=== PATIENT | male | born 1955 | race Caucasian/White ===

== ENCOUNTER 2018-07-22 11:45 | Emergency (ER) | payer SELFPAY ==
[~2018-07-22] VITALS: Ht 170.2 cm; Wt 78.7 kg
[2018-07-22] MEDS ORDERED: SODIUM CHLORIDE FLUSH 10ML SYR IVF ONE (12:30)
[2018-07-22 12:44] LABS: BASOPHILS # (AUTO) 0.01 x10^3/uL (0-0.1); BASOPHILS % (AUTO) 0 % (0-1); EOSINOPHILS # (AUTO) 0.03 x10^3/uL (0-0.4); EOSINOPHILS % (AUTO) 1 % (1-7); LYMPHOCYTES # (AUTO) 1.65 x10^3/uL (1-3.4); LYMPHOCYTES % (AUTO) 25 % (22-44); MD NO; MEAN CORPUSCULAR HEMOGLOBIN 31.1 pg (27.5-34.5); MEAN CORPUSCULAR HGB CONC 34.2 g/dL (33.2-36.2); MEAN CORPUSCULAR VOLUME 90.8 fL (81-97); MONOCYTES # (AUTO) 0.42 x10^3/uL (0.2-0.8); MONOCYTES % (AUTO) 6 % (2-9); NEUTROPHILS # (AUTO) 4.44 x10^3/uL (1.8-6.8); NEUTROPHILS % (AUTO) 68 % (42-75); PLATELET COUNT 215 x10^3/uL (130-400); RED BLOOD COUNT 5.71 x10^6/uL (4.38-5.82); RED CELL DISTRIBUTION WIDTH 13.2 % (9.4-14.8)
--- NOTE | 2018-07-22 12:46 | NUR ---
PT TO ROOM FROM LOBBY
[2018-07-22 12:53] LABS: ALANINE AMINOTRANSFERASE 19 U/L (12-78); ALBUMIN 4.2 g/dL (3.4-5.0); ANION GAP 6 mmol/L (5-15); CALCIUM 9.3 mg/dL (8.5-10.1); CHLORIDE 105 mmol/L (98-107)
[2018-07-22 12:56] LABS: ALKALINE PHOSPHATASE 104 U/L (45-117); BILIRUBIN,TOTAL 0.7 mg/dL (0.2-1.0); CREATININE 1.25 mg/dL (0.7-1.3); TOTAL PROTEIN 8.1 g/dL (6.4-8.2)
[2018-07-22 12:59] VITALS: BP_DIAS 90
--- NOTE | 2018-07-22 13:11 | NUR ---
THIS IS A 62 YEAR OLD MALE WHO C/O OF LIGHTEDNESS AND DIZZINESS. STARTED LAST WEEK, WORSE TODAY. DENIES ANY FALLS.
[2018-07-22] MEDS ORDERED: MECLIZINE CHEWABLE 25 MG TAB ONE (13:23)
[2018-07-22] MEDS ORDERED: MECLIZINE CHEWABLE 25 MG TAB PO ONE (13:30)
[2018-07-22 13:59] LABS: MICROSCOPIC INDICATED
[2018-07-22 14:28] LABS: CULTURE INDICATED? YES
--- NOTE | 2018-07-22 14:39 | NUR ---
CARE FOR DC PROVIDED. PT WITH DECREASED C/O DIZZINESS. NO IV TO DC. REVIEWED DC INSTRUCTIONS WITH PT. UNDERSTANDING VERBALIZED. PT LEFT AMB, GAIT STEADY.
[2018-07-22 14:40] VITALS: BP_SYST 155
== END 2018-07-22 14:42 | disposition home or self-care (01) ==
LOC: ED 14:30
DX: R42 Dizziness and giddiness (principal); R11.10 Vomiting, unspecified
CPT/HCPCS: 36415; 80053; 81001; 85025; 87086; 93005; 99284

== ENCOUNTER 2019-06-27 08:43 | Inpatient (IN) | payer SELFPAY ==
[~2019-06-27] VITALS: Ht 170.2 cm; Wt 85.2 kg
[2019-06-27] MEDS ORDERED: ASPIRIN 325 MG TABLET PO STA (08:54)
--- NOTE | 2019-06-27 09:05 | NUR ---
855 code cardiac paged [phone] lab animal technician called and are aware of pt 857 jony heard paged for dr singleton [phone] dr singleton spoke with dr jony heard
--- NOTE | 2019-06-27 09:09 | NUR ---
PT PRESENTS TO ED WITH C/O STERNAL CHEST PRESSURE 4/10 ONSET THIS AM AT 0500 WITH ASSOCIATED SOB. PT STATES PAIN TRAVELS TO LEFT NECK. PT STATES HE HAS HAD THIS PAIN INTERMITTENTLY FOR LAST TWO MONTHS, HOWEVER PAIN IS WORSE THIS AM THAN IT HAS EVER BEEN. PT STATES PAIN IS NOW CONSTANT. PT DENIES PMH, STATES HE TOOK 2 BABY ASPIRIN THIS AM AT APPROX 0630 WITH SIP OF WATER. PIV PLACED X 2, EKG TAKEN IN TRIAGE, REPEAT EKG TAKEN IN ROOM. ALL MONITORS IN PLACE .TRANSLUCSENT PADS IN PLACE. PT SEEN AND EVALUATED BY RETAIL ADVISOR WHO RECOMMENDS ANGIOGRAM. PT TO GO TO TESTING SHAKING SHIPPING WHEN TESTING SHAKING SHIPPING IS READY.
[2019-06-27 09:10] LABS: BASOPHILS # (AUTO) 0.04 x10^3/uL (0-0.1); BASOPHILS % (AUTO) 0 % (0-1); EOSINOPHILS # (AUTO) 0.01 x10^3/uL (0-0.4); EOSINOPHILS % (AUTO) 0 % (1-7); LYMPHOCYTES # (AUTO) 1.18 x10^3/uL (1-3.4); LYMPHOCYTES % (AUTO) 9 % (22-44); MD NO; MEAN CORPUSCULAR HEMOGLOBIN 30.8 pg (27.5-34.5); MEAN CORPUSCULAR HGB CONC 33.4 g/dL (33.2-36.2); MEAN PLATELET VOLUME 7.8 fL (7.4-10.4); MONOCYTES # (AUTO) 0.31 x10^3/uL (0.2-0.8); MONOCYTES % (AUTO) 2 % (2-9); NEUTROPHILS # (AUTO) 11.49 x10^3/uL (1.8-6.8); NEUTROPHILS % (AUTO) 88 % (42-75); PLATELET COUNT 217 x10^3/uL (130-400); RED BLOOD COUNT 5.48 x10^6/uL (4.38-5.82)
[2019-06-27] MEDS ORDERED: TICAGRELOR 90 MG TABLET ONE (09:14)
[2019-06-27] MEDS ORDERED: MIDAZOLAM 1 MG/ML, 5ML ONE (09:14)
[2019-06-27] MEDS ORDERED: HEPARIN 1,000 UNITS/ML, 10ML ONE (09:14)
[2019-06-27] MEDS ORDERED: LIDOCAINE 2%, 20ML ONE (09:14)
[2019-06-27] MEDS ORDERED: VERAPAMIL 2.5 MG/ML, 2ML ONE (09:14)
[2019-06-27] MEDS ORDERED: FENTANYL PF 100 MCG/2ML ONE (09:14)
[2019-06-27] MEDS ORDERED: BIVALIRUDIN 250 MG ONE (09:14)
[2019-06-27 09:21] LABS: INTERNATIONAL NORMALIZED RATIO 0.98 (0.93-1.1); PROTHROMBIN TIME 10.4 Seconds (9.6-11.5)
[2019-06-27] MEDS ORDERED: BACLOFEN 10 MG TABLET PO PRN (09:30)
[2019-06-27] MEDS ORDERED: ACETAMINOPHEN 325 MG TABLET PO PRN (09:30)
[2019-06-27] MEDS ORDERED: NITROGLYCERIN 0.4 MG/SPRAY SL PRN (09:30)
[2019-06-27] MEDS ORDERED: NITROGLYCERIN 0.4 MG BOTTLE (25 TABS) SL PRN (09:30)
[2019-06-27] MEDS: LISINOPRIL 5 MG TABLET PO SCH (09:30)
[2019-06-27] MEDS ORDERED: ONDANSETRON 2MG/ML, 2ML IVPush PRN (09:30)
[2019-06-27] MEDS ORDERED: OXYcodone IR 5MG TABLET PO PRN (09:30)
[2019-06-27] MEDS ORDERED: hydrALAzine 20 MG/ML, 1ML IVPush PRN (09:30)
[2019-06-27] MEDS ORDERED: morphine SULFATE 10 MG/ML, 1ML IVPush PRN (09:30)
--- NOTE | 2019-06-27 09:38 | NUR ---
LATE ENTRY D/T PATIENT CARE: PT TRANSPORTED TO BRIQUETTER OPERATOR BY THIS RN WITH WAREHOUSING TECHNICIAN IN PLACE . PT A&OX4, RESPS EVEN AND UNLABORED, ABLE TO SPEAK IN FULL SENTENCES WITHOUT DIFFICULTY ON TRANSPORT. PT RATES C AT 4/10 AT TIME OF TRANSPORT. PT ARRIVED TO BRIQUETTER OPERATOR AND ON TABLE AT 0920. ISTAT RESULTS OBTAINED AND GIVEN TO BRIQUETTER OPERATOR RN, THIS RN GAVE BRIQUETTER OPERATOR RN MEMO REPORT ON ARRIVAL. THIS RN NOTIFIED APPOINTMENT COORDINATOR PIERRE PT HAS TAKEN 162 MG ASPIRIN ELECTRICIAN'S HELPER, PER MD JAY, NO ADDITIONAL ASPIRIN IS REQUIRED. DOSE ORDERED IN ED HELD PER MD'S ORDER. PTS FAMILY UPDATED, TAKEN TO BRIQUETTER OPERATOR/CCU WAIT ROOM. PT BELONGINGS BAGGED AND GIVEN TO FAMILY.
[2019-06-27] MEDS ORDERED: PRASUGREL 10 MG TABLET ONE (09:45)
[2019-06-27] MEDS ORDERED: ASPIRIN 81 MG TABLET CHEW ONE (09:49)
[2019-06-27] MEDS ORDERED: ADENOSINE 6 MG/2 ML ONE (10:12)
[2019-06-27] MEDS ORDERED: HEPARIN 5,000 UNITS/ML, 1ML IV PRN (10:30)
[2019-06-27] MEDS ORDERED: HEPARIN 5,000 UNITS/ML, 1ML IV ONE (10:30)
[2019-06-27] MEDS ORDERED: HEPARIN 25,000 UNITS/250ML PMX 250 ML IV PRN (10:30)
[2019-06-27] MEDS: SODIUM CHLORIDE 0.9% 1,000 ML IV SCH ×2 (11:22→17:33)
[2019-06-27] MEDS: ONDANSETRON ODT 4 MG PO PRN (17:03)
[2019-06-27] MEDS: METOPROLOL TARTRATE 25 MG TAB PO SCH (17:32)
[2019-06-27] MEDS: TICAGRELOR 90 MG TABLET PO SCH (21:00)
[2019-06-27] MEDS: ATORVASTATIN 80 MG TABLET PO SCH (21:00)
[2019-06-28] MEDS: ONDANSETRON ODT 4 MG PO PRN (01:24)
[2019-06-28] MEDS: SODIUM CHLORIDE 0.9% 1,000 ML IV SCH (01:51)
[2019-06-28 04:37] LABS: BASOPHILS # (AUTO) 0.03 x10^3/uL (0-0.1); BASOPHILS % (AUTO) 0 % (0-1); EOSINOPHILS # (AUTO) 0.03 x10^3/uL (0-0.4); EOSINOPHILS % (AUTO) 0 % (1-7); LYMPHOCYTES # (AUTO) 0.94 x10^3/uL (1-3.4); LYMPHOCYTES % (AUTO) 7 % (22-44); MD NO; MEAN CORPUSCULAR HEMOGLOBIN 30.9 pg (27.5-34.5); MEAN CORPUSCULAR HGB CONC 33.9 g/dL (33.2-36.2); MEAN PLATELET VOLUME 8.5 fL (7.4-10.4); MONOCYTES # (AUTO) 0.83 x10^3/uL (0.2-0.8); MONOCYTES % (AUTO) 7 % (2-9); NEUTROPHILS # (AUTO) 11.04 x10^3/uL (1.8-6.8); NEUTROPHILS % (AUTO) 86 % (42-75); PLATELET COUNT 176 x10^3/uL (130-400)
[2019-06-28 04:43] LABS: ALANINE AMINOTRANSFERASE 38 U/L (12-78); ALBUMIN 3.1 g/dL (3.4-5.0); ANION GAP 9 mmol/L (5-15); CALCIUM 7.7 mg/dL (8.5-10.1); CHLORIDE 106 mmol/L (98-107); CREATININE 1.01 mg/dL (0.7-1.3)
[2019-06-28 04:54] LABS: ALKALINE PHOSPHATASE 85 U/L (45-117); BILIRUBIN,TOTAL 1.1 mg/dL (0.2-1.0); CHOL/HDL RATIO 4.5; CHOLESTEROL, TOTAL 166 mg/dL (140-239); HDL CHOL % 22 % (26-37); HDL CHOLESTEROL (DIRECT) 37 mg/dL (40-60); LDL CHOLESTEROL,CALCULATED 97 mg/dL (54-169); LDL/HDL RATIO 2.6 (0.5-3.0); TOTAL PROTEIN 6.3 g/dL (6.4-8.2); TRIGLYCERIDES 160 mg/dL (50-200); VLDL CHOLESTEROL 32 mg/dL (0-25)
[2019-06-28] MEDS: ASPIRIN 81 MG TABLET EC PO SCH (06:19)
[2019-06-28] MEDS: METOPROLOL TARTRATE 25 MG TAB PO SCH ×2 (06:19→17:42)
[2019-06-28] MEDS: LISINOPRIL 5 MG TABLET PO SCH (08:26)
[2019-06-28] MEDS: TICAGRELOR 90 MG TABLET PO SCH ×2 (08:26→20:09)
[2019-06-28 12:48] VITALS: BP 107/70
[2019-06-28] MEDS ORDERED: ENOXAPARIN 40 MG/0.4 ML SQ SCH (15:00)
[2019-06-28 19:18] VITALS: BP 108/67
[2019-06-28] MEDS: ATORVASTATIN 80 MG TABLET PO SCH (20:09)
[2019-06-29 00:02] VITALS: BP 114/63
[2019-06-29] MEDS: ASPIRIN 81 MG TABLET EC PO SCH (05:08)
[2019-06-29] MEDS: METOPROLOL TARTRATE 25 MG TAB PO SCH (05:09)
[2019-06-29 05:26] LABS: ALBUMIN 3.1 g/dL (3.4-5.0); ANION GAP 7 mmol/L (5-15); CALCIUM 8.2 mg/dL (8.5-10.1); CHLORIDE 110 mmol/L (98-107)
[2019-06-29 05:27] LABS: BASOPHILS # (AUTO) 0.04 x10^3/uL (0-0.1); BASOPHILS % (AUTO) 0 % (0-1); EOSINOPHILS # (AUTO) 0.07 x10^3/uL (0-0.4); EOSINOPHILS % (AUTO) 1 % (1-7); LYMPHOCYTES # (AUTO) 1.33 x10^3/uL (1-3.4); LYMPHOCYTES % (AUTO) 13 % (22-44); MD NO; MEAN CORPUSCULAR HEMOGLOBIN 30.9 pg (27.5-34.5); MEAN CORPUSCULAR HGB CONC 33.5 g/dL (33.2-36.2); MEAN CORPUSCULAR VOLUME 92.2 fL (81-97); MEAN PLATELET VOLUME 8.5 fL (7.4-10.4); MONOCYTES # (AUTO) 0.76 x10^3/uL (0.2-0.8); MONOCYTES % (AUTO) 8 % (2-9); NEUTROPHILS # (AUTO) 7.74 x10^3/uL (1.8-6.8); NEUTROPHILS % (AUTO) 78 % (42-75); PLATELET COUNT 165 x10^3/uL (130-400); RED BLOOD COUNT 4.61 x10^6/uL (4.38-5.82); RED CELL DISTRIBUTION WIDTH 13.4 % (9.4-14.8)
[2019-06-29 05:30] LABS: ALANINE AMINOTRANSFERASE 32 U/L (12-78); ALKALINE PHOSPHATASE 87 U/L (45-117); BILIRUBIN,TOTAL 1.3 mg/dL (0.2-1.0); CREATININE 1.26 mg/dL (0.7-1.3); TOTAL PROTEIN 6.5 g/dL (6.4-8.2)
[2019-06-29] MEDS ORDERED: FLU VACC QS2019-20 36MOS UP/PF 0.5 ML IM-VACC ONE (07:30)
[2019-06-29] MEDS: TICAGRELOR 90 MG TABLET PO SCH (07:49)
[2019-06-29] MEDS: LISINOPRIL 5 MG TABLET PO SCH (07:49)
[2019-06-29 07:50] VITALS: BP 98/61
[2019-06-29] MEDS ORDERED: METO25TA35 PO (09:16)
[2019-06-29] MEDS ORDERED: LISI5TAB7 PO (09:16)
[2019-06-29] MEDS ORDERED: NITR0.4T28 SL (09:16)
[2019-06-29] MEDS ORDERED: TICA90TA PO (09:16)
[2019-06-29] MEDS ORDERED: ASPI81TA45 PO (09:16)
[2019-06-29] MEDS ORDERED: ATOR-2 PO (09:16)
== END 2019-06-29 11:17 | disposition home or self-care (01) | DRG 247 ==
LOC: SUATTDRO 09:24 → ED 09:40 → EDIP 10:09 → CCU 10:12 → 5SO 06-28 10:35 → DCLOUNGE 06-29 11:03
PROVIDERS: ADMIT Internal Medicine Cardiovascular Disease; ATTEND Internal Medicine
PROC: 027135Z Dilation of Coronary Artery, Two Arteries with Two Drug-eluting Intraluminal Devices, Percutaneous Approach (ICD-10-PCS; principal; 2019-06-27)
PROC: 4A023N7 Measurement of Cardiac Sampling and Pressure, Left Heart, Percutaneous Approach (ICD-10-PCS; 2019-06-27)
PROC: B211YZZ Fluoroscopy of Multiple Coronary Arteries using Other Contrast (ICD-10-PCS; 2019-06-27)
DX: I21.19 ST elevation (STEMI) myocardial infarction involving other coronary artery of inferior wall (principal); E87.1 Hypo-osmolality and hyponatremia; I47.2 Ventricular tachycardia; D72.829 Elevated white blood cell count, unspecified; E78.5 Hyperlipidemia, unspecified; E87.6 Hypokalemia; I10 Essential (primary) hypertension; I25.10 Atherosclerotic heart disease of native coronary artery without angina pectoris; I25.82 Chronic total occlusion of coronary artery; I35.8 Other nonrheumatic aortic valve disorders; Z87.891 Personal history of nicotine dependence; Z95.5 Presence of coronary angioplasty implant and graft; Z23 Encounter for immunization
CPT/HCPCS: 36415; 93454; 99291; C9600; C9601; J3490; 71045; 80047; 80053; 80061; 83036; 83735; 84132; 84443; 84484; 85025; 85610; 85730; 87081; 90686; 93005; 93306; 99156; 99157; C1769; C1894; G0378; J0153; J0583; J1644; J1650; J2250; J2405; J3010; Q0162; C1725; C1874; C1887; J7030; Q9967

== ENCOUNTER 2019-09-27 09:59 | Outpatient (CLI) | payer MEDICARE, BC ==
[~2019-09-27 09:59] MED LIST: ASPI81TA45 PO; ATOR-2 PO; LISI5TAB7 PO; METO25TA35 PO; NITR0.4T28 SL; TICA90TA PO
[2019-09-27 13:40] LABS: ALBUMIN 4.1 g/dL (3.4-5.0); ANION GAP 2 mmol/L (5-15); CALCIUM 8.8 mg/dL (8.5-10.1); CHLORIDE 107 mmol/L (98-107)
[2019-09-27 13:45] LABS: ALANINE AMINOTRANSFERASE 26 U/L (12-78); ALKALINE PHOSPHATASE 125 U/L (45-117); CHOL/HDL RATIO 3.8; CHOLESTEROL, TOTAL 142 mg/dL (140-239); CREATININE 1.35 mg/dL (0.7-1.3); HDL CHOL % 26 % (26-37); HDL CHOLESTEROL (DIRECT) 37 mg/dL (40-60); LDL CHOLESTEROL,CALCULATED 57 mg/dL (54-169); LDL/HDL RATIO 1.5 (0.5-3.0); TOTAL PROTEIN 7.9 g/dL (6.4-8.2); TRIGLYCERIDES 240 mg/dL (50-200); VLDL CHOLESTEROL 48 mg/dL (0-25)
== END 2019-09-27 23:59 | disposition home or self-care (01) ==
LOC: CFH 09:59
PROVIDERS: ATTEND Internal Medicine Cardiovascular Disease
DX: E78.2 Mixed hyperlipidemia (principal); I25.10 Atherosclerotic heart disease of native coronary artery without angina pectoris
CPT/HCPCS: 36415; 80053; 80061

== ENCOUNTER 2019-10-07 10:08 | Outpatient (CLI) | payer MEDICARE, BC | END 2019-10-07 23:59 | disposition home or self-care (01) | LOC: CVU 10:08 | PROVIDERS: ATTEND Registered Nurse | DX: I65.02 Occlusion and stenosis of left vertebral artery (principal); Z95.5 Presence of coronary angioplasty implant and graft | CPT/HCPCS: 93880 ==